=== PATIENT | male | born 1970 | race Caucasian/White ===

== ENCOUNTER 2024-10-07 13:04 | Outpatient (CLI) | payer OTHER ==
[2024-10-07] MEDS ORDERED: ALBU8HFA INH (13:56)
[2024-10-07 14:09] LABS: MEAN PLATELET VOLUME 7.4 FL (7.4-10.4); PRE OP HEMATOCRIT 47.9 % (42.0-52.0); PRE OP HEMOGLOBIN 16.5 g/dL (14.0-17.9); PRE OP PLATELET COUNT 288 X10'3 (140-440); PRE OP WHITE BLOOD COUNT 7.2 10'3 (4.8-10.8); RED CELL DISTRIBUTION WIDTH 14.0 % (11.5-14.5)
[2024-10-07 14:23] LABS: PRE OP INR 1.0 INR; PRE OP PARTIAL THROMB. TIME 29.0 SECONDS (22-32); PRE OP PROTIME 10.3 SECONDS (9.0-12.0)
--- NOTE | 2024-10-07 14:26 | ELECTROCARDIOGRAPH REPORT ---
[facility] Test Date: 2024-10-07 Test Time: 14:24:27 Pat Name: EILEEN WALLIS Department: [facility]-PRE-OP Patient ID: [facility]-[id number] Room: Gender: M Licensed [employer]: : 1970 Requested By: FARRAH ZAMUDIO Order Number: [id number] Reading MD: Dr. MARY Carlton Measurements Intervals Madeline Rate: 97 P: 73 ME: 200 QRS: 194 QRSD: 138 T: 57 QT: 380 QTc: 483 Interpretive Statements Sinus rhythm Ventricular bigeminy Borderline prolonged ME interval Nonspecific intraventricular conduction delay Electronically Signed On 10-07-2024 16:54:[address] MARY Carlton Please click the below link to view image of tracing.
[2024-10-07 14:32] LABS: LEUKOCYTE ESTERASE ,URINE TRACE (Neg); NITRITES, URINE POSITIVE (Neg); OCCULT BLOOD,URINE NEGATIVE (Neg)
[2024-10-07 14:38] LABS: CREATININE 0.93 MG/DL (0.60-1.10); PRE OP ALT 26 U/L (30-65); PRE OP ANION GAP 9 (8-16); PRE OP AST 22 U/L (10-37); PRE OP BILIRUB, TOTAL 0.5 MG/DL (0.0-1.0); PRE OP GLUCOSE 121 MG/DL (70-104); PRE OP POTASSIUM 4.0 MMOL/L (3.4-5.1); PRE OP SODIUM 139 MMOL/L (135-145); TOTAL CARBON DIOXIDE 25.1 MMOL/L (24-32); eGFR 84 ML/MIN
[2024-10-07 14:40] LABS: UA COLLECTION TYPE CLN CATCH MIDSTREAM
[2024-10-07 14:47] LABS: SQUAMOUS EPITHELIAL CELL,UR FEW /LPF (FEW); WBC CLUMPS,URINE MODERATE /HPF (NEGATIVE)
--- NOTE | 2024-10-07 15:11 | RADIOLOGY REPORT ---
DI CHEST,TWO VIEWS CLINICAL HISTORY: PREOP, pain COMPARISON: None TECHNIQUE: Frontal and lateral view of the chest was obtained FINDINGS: Lines and Tubes: None Lungs: No focal consolidation. Pleura: No effusion. No pneumothorax. Cardiomediastinal contours: Cardiomegaly. Bones: No acute osseous abnormality. IMPRESSION: Cardiomegaly with CHF.
== END 2024-10-07 23:59 | disposition home or self-care (01) ==
LOC: LAB 13:04 → EDSTATUS 10-13 09:45
PROVIDERS: ATTEND Podiatrist Foot & Ankle Surgery
DX: M25.272 Flail joint, left ankle and foot (principal); M25.572 Pain in left ankle and joints of left foot; I45.89 Other specified conduction disorders
CPT/HCPCS: 36415; 71046; 80053; 81001; 85025; 85610; 85730; 87077; 87088; 87186; 93005